=== PATIENT | female | born 1990 | race Two or more races ===

== ENCOUNTER 2024-03-14 15:50 | Outpatient (RCR) | payer MEDICAID, SELFPAY ==
--- NOTE | 2024-02-09 16:03 | XR_ITS ---
Examination: Biophysical profile, ultrasound Date and time of exam: February 09, 2024 1626 hours INDICATIONS: Pre-existing hypertension, pelvic contractions beginning one week ago Technique: Multiple transabdominal sonographic images of the pelvis abdomen obtained. Attention is directed to the breathing movement, gross body movement, amniotic fluid volume and tone. Findings: Amniotic fluid index 10.7 cm Total biophysical profile is 8 of 8. breathing movement is 2. Gross body movement is 2. tone is 2. Qualitative amniotic fluid volume is 2 Impression: Biophysical profile is 8 of 8.
[2024-02-09 16:55] VITALS: BP 117/65; PULSE 75; RESP 16; TEMP 36.7
--- NOTE | 2024-02-15 15:38 | XR_ITS ---
Examination: Biophysical profile, ultrasound Date and time of exam: February 15, 2024 1609 hrs. Indications: Lower back pain and pelvic contractions beginning several weeks ago Technique: Multiple transabdominal sonographic images of the pelvis abdomen obtained. Attention is directed to the breathing movement, gross body movement, amniotic fluid volume and tone. Findings: Amniotic fluid index 7.7 cm Total biophysical profile is 8 of 8. breathing movement is 2. Gross body movement is 2. tone is 2. Qualitative amniotic fluid volume is 2 Impression: Biophysical profile is 8 of 8.
[2024-02-15 17:04] VITALS: BP 140/78; PULSE 69; RESP 16; TEMP 36.9
--- NOTE | 2024-02-22 15:40 | XR_ITS ---
Examination: Biophysical profile, ultrasound Date and time of exam: February 22, 2024 at 1548 hrs. Indications: Pelvic contractions beginning one week ago, worse today Technique: Multiple transabdominal sonographic images of the pelvis abdomen obtained. Attention is directed to the breathing movement, gross body movement, amniotic fluid volume and tone. Findings: Amniotic fluid index 8.7 cm Total biophysical profile is 8 of 8. breathing movement is 2. Gross body movement is 2. tone is 2. Qualitative amniotic fluid volume is 2 Impression: Biophysical profile is 8 of 8.
[2024-02-22 16:30] VITALS: BP 148/84; PULSE 67; RESP 16; TEMP 36.7
--- NOTE | 2024-02-29 15:35 | XR_ITS ---
Examination: Biophysical profile, ultrasound Date and time of exam: February 29, 2024 at 1544 hours INDICATIONS: Diagnosis pre-existing hypertension, pelvic contractions intermittent one week Technique: Multiple transabdominal sonographic images of the pelvis abdomen obtained. Attention is directed to the breathing movement, gross body movement, amniotic fluid volume and tone. Findings: Amniotic fluid index 15.5 cm Total biophysical profile is 8 of 8. breathing movement is 2. Gross body movement is 2. tone is 2. Qualitative amniotic fluid volume is 2 Impression: Biophysical profile is 8 of 8.
[2024-02-29 16:00] VITALS: BP 121/77; PULSE 88; RESP 16; TEMP 36.6
--- NOTE | 2024-03-07 15:52 | XR_ITS ---
Examination: Biophysical profile, ultrasound Date and time of exam: March 07, 2024 1556 hours INDICATIONS: Diagnosis pre-existing hypertension, diagnosis pelvic contractions beginning 2 weeks ago Technique: Multiple transabdominal sonographic images of the pelvis abdomen obtained. Attention is directed to the breathing movement, gross body movement, amniotic fluid volume and tone. Findings: Amniotic fluid index 15.1 cm Total biophysical profile is 8 of 8. breathing movement is 2. Gross body movement is 2. tone is 2. Qualitative amniotic fluid volume is 2 Impression: Biophysical profile is 8 of 8.
[2024-03-07 16:33] VITALS: BP 109/59; PULSE 88; RESP 16; TEMP 36.7
--- NOTE | 2024-03-14 15:59 | XR_ITS ---
Examination: Biophysical profile, ultrasound Date and time of exam: March 14, 2024 1601 hours INDICATIONS: Diagnosis pre-existing hypertension, pelvic contractions beginning 3 weeks ago Technique: Multiple transabdominal sonographic images of the pelvis abdomen obtained. Attention is directed to the breathing movement, gross body movement, amniotic fluid volume and tone. Findings: Amniotic fluid index 10.2 cm Total biophysical profile is 8 of 8. breathing movement is 2. Gross body movement is 2. tone is 2. Qualitative amniotic fluid volume is 2 Impression: Biophysical profile is 8 of 8.
[2024-03-14 16:39] VITALS: BP 132/72; PULSE 82; RESP 16; TEMP 36.8
== END 2024-03-14 23:59 | disposition home or self-care (01) ==
LOC: S4S1 15:50
PROVIDERS: PCP Family Medicine; Referring Provider Nurse Practitioner Women's Health; Visit Provider Nurse Practitioner Women's Health
DX: O10.013 Pre-existing essential hypertension complicating pregnancy, third trimester (principal); Z3A.37 37 weeks gestation of pregnancy
CPT/HCPCS: 59025; 76819

== ENCOUNTER 2024-03-21 12:08 | Inpatient (IN) | payer MEDICAID, SELFPAY ==
[2024-03-21] VITALS (26 sets, daily range): BP systolic 116–170; BP diastolic 72–103; PULSE 59–86; RESP 18–98; TEMP 36.7–37; O2SAT 97; BMI 40.5
--- NOTE | 2024-03-21 13:02 | XR_ITS ---
Examination: Biophysical profile, ultrasound Date and time of exam: March 13, 2024 1353 hours INDICATIONS: -induced hypertension today Technique: Multiple transabdominal sonographic images of the pelvis abdomen obtained. Attention is directed to the breathing movement, gross body movement, amniotic fluid volume and tone. Findings: Amniotic fluid index 16.7 cm Total biophysical profile is 8 of 8. breathing movement is 2. Gross body movement is 2. tone is 2. Qualitative amniotic fluid volume is 2 Impression: Biophysical profile is 8 of 8.
--- NOTE | 2024-03-21 13:02 | XR_ITS ---
Examination: Complete OB ultrasound greater than 14 weeks Date and time of exam: March 13, 2024 1416 hours INDICATIONS: -induced hypertension today Findings: Viable intrauterine single fetus with single amniotic sac presentation cephalic Cardiac motion 131 BPM Placenta anterior grade 3 Umbilical cord insertion 3 vessel seen Amniotic fluid index 15.4 cm spine posterior Cervix 3.6 cm closed Ovaries obscured by bowel gas. Composite estimated gestational age based on BPD, head circumference, abdominal circumference, femur length is 38 weeks 5 days Estimated weight 3622 g. Survey of intracranial anatomy, spinal anatomy, abdominal anatomy, four-chamber heart performed with no abnormalities identified. Impression: Viable intrauterine gestation cephalic presentation.
[2024-03-21 14:27] LABS: Basophils % (Auto) 0 % (0-2.5); Eosinophils # (Auto) 0.2 Thou/mm3 (0.0-0.5); Eosinophils % (Auto) 2 % (0-10); Hematocrit 31.9 % (36.0-46.0); Hemoglobin 10.2 g/dL (12.0-16.0); Immature Granulocytes % (Auto) 1 % (0-0); Immature Granulocytes Auto 0.07 Thou/mm3 (0.00-0.00); Lymphocytes # (Auto) 1.1 Thou/mm3 (1.0-4.8); Lymphocytes % (Auto) 15 % (10-50); Mean Corpuscular Volume 75 fL (80-100); Monocytes # (Auto) 0.7 Thou/mm3 (0.0-0.8); Monocytes % (Auto) 10 % (0-12); Neutrophils # (Auto) 5.5 Thou/mm3 (1.8-7.7); Neutrophils % (Auto) 72 % (37-80); Nucleated Red Blood Cell % 0 /100 WBC (0); Platelet Count 485 Thou/mm3 (140-440); RDW Standard Deviation 45.9 fL (36.4-46.3); Red Blood Count 4.25 Miln/mm3 (4.00-5.20); White Blood Count 7.6 Thou/mm3 (3.6-11.0)
[2024-03-21 14:32] LABS: Collection Type, Urine Clean Catch
[2024-03-21 14:52] LABS: Bilirubin,Urine Negative (Negative); Blood,Urine Negative (Negative); Clarity,Urine Turbid (Clear/Hazy); Color,Urine Yellow (Lt Yel-Yel); Glucose, Urine Negative (Negative); Ketones,Urine Trace (Negative); Leukocyte Esterase,Urine Positive (Negative); Nitrite,Urine Negative (Negative); Protein,Urine 1+ (Neg - Trace); RBC,Urine 2 /hpf (0-3); Specific Gravity,Urine 1.028 (1.001-1.035); Squamous Epithelial Cell,Urine 10 /hpf (0-5); WBC,Urine 8 /hpf (0-5)
[2024-03-21 15:02] LABS: Fibrinogen 596 mg/dL (175-375); Partial Thromboplastin Time 25.6 Seconds (22.0-36.0); Prothrombin Time 10.9 Seconds (9.0-12.2)
[2024-03-21 15:03] LABS: Alanine Aminotransferase 16 U/L (10-49); Albumin/Globulin Ratio 1.3 (1.2-2.2); Alkaline Phosphatase 259 U/L (46-116); Anion Gap 8 (7-16); Aspartate Amino Transferase 15 U/L (0-34); BUN/Creatinine Ratio 11 Ratio (12-20); Bilirubin,Total 0.4 mg/dL (0.3-1.2); Blood Urea Nitrogen 8 mg/dL (9-23); Calcium 9.3 mg/dL (8.3-10.6); Calcium (Corrected) 9.3 mg/dL (8.5-10.1); Carbon Dioxide 25.3 mMol/L (20.0-31.0); Chloride 102 mMol/L (98-107); Creatinine (Component) 0.7 mg/dL (0.6-1.3); Estimated Creatinine Clearance 141.4 mL/min (>60); Globulin 3.1 gm/dL (2.3-3.5); Glucose 88 mg/dL (74-106); Osmolality,Calculated 267 (275-295); Sodium 135 mMol/L (136-145); Total Protein 7.1 gm/dL (5.7-8.2); Uric Acid 4.8 mg/dL (3.1-7.8); eGFR > 60 See Note
--- NOTE | 2024-03-21 16:10 | PD.LDHP ---
Documentation for date of: 03/21/24 OB Labor/Induct. HPI History of Present Illness Chief complaint: 34 y/o 38w 4d presents to L&D for uncontrolled BPs : 5 Para: 3 Term pregnancies: 2 pregnancies: 1 Living children: 4 (Twin delivery) History of Abortions: Spontaneous and Elective: 1 History of Vaginal deliveries: 4 History of sections: No History of : No CARO: 03/31/24 Gestational Age (weeks): 38 Gestational Age (days): 4 History of present illness: 34 y/o [id number] 38w 4d presents to L&D for uncontrolled BPs with GHTN on medication. Pt was sent in from clinic due to two elevated BPs in office. PIH labs ordered and BPP and complete OB sono. PIH labs were ok, BPP 8/8 and sono was normal, cephalic and EFW 3600g. Pt has a hx of 2 full-term deliveries 1 PTD of Twins and 1 SAB. has been complicated by pre-existing hypertension taking 200 labetalol BID. Pt is also obese with BMI 38 and has anemia. Pt was also late to care at 20 weeks. GBS is positive. EFW 3600g History of Present Dating criteria: LMP confirmed by 1st trimester US Adequate Care: Yes Ultrasounds: normal 1st trimester US and normal mid trimester US Obstetrical complications: gestational hypertension Medical complications: other (Obesity and Anemia) Labs Maternal Blood Type: O Pos Labs: Positive: Rubella Titre and Group Beta Strep, Negative: RPR, Hepatitis B, HIV, Chlamydia and Gonorrhea and Unknown: Herpes Type 1, Herpes Type 2 and Covid-19 Review of Systems Review of Systems Systems Reviewed: All systems reviewed, normal except as documented Past Medical History Surgical History SURGICAL: Negative Section Meds Home Medications and Allergies Home Medications ?Medication ?Instructions ?Recorded ?Confirmed ?Type vit no.95-ferrous 1 tab PO QDAY 03/20/23 03/21/24 History fumarate 28 mg-folic acid 800 mcg tablet () Allergies Allergy/AdvReac Type Severity Reaction Status Date / Time No Known Allergies Allergy Verified 03/21/24 15:48 OB Exam Physical Exam Vital signs: Temp Pulse Resp BP Pulse Ox 98.1 F 65 18 138/77 H 97 03/21/24 12:48 03/21/24 15:48 03/21/24 12:09 03/21/24 15:48 03/21/24 12:27 Constitutional Constitutional: no acute distress Routine HEENT Exam Head: Present normocephalic and atraumatic Eye: Present EOMI, PERRL and normal accommodation ENT: Present mucous membranes moist Routine Neck Exam Neck: Present full ROM Routine Respiratory Exam Respiratory: Absent respiratory distress Routine Cardiovascular Exam Cardiovascular: Present RRR Routine Abdominal Exam Abdominal: Present soft Comments: Gravid Uterus EFW 3600g Routine Exam External: Present normal urethra appearance; Absent lesions Detailed Labor and Delivery Exam Dilation (cm): FT Effacement (%): 0 Cervix position: posterior station: -3 Consistency: medium Presentation: Vertex Membranes: intact Baseline heart rate: 125 monitor accelerations: 15x15 monitor decelerations: None value advisor variability: Moderate (11-25) Contraction frequency (min): None Routine Extremities Exam Extremities: Present full ROM Routine Back/Spine/Pelvis Exam Back/Spine: Present full ROM Routine Skin Exam Skin: Present intact, dry and warm Routine Neurological Exam Neurological: Present alert, oriented X3 and CN II-XII intact Routine Psychiatric Exam Psychiatric: Present normal affect and normal thought process OB Results Labs 03/21/24 14:01 03/21/24 14:01 Labs: Short CBC 03/21/24 Range/Units 14:01 WBC 7.6 (3.6-11.0) Thou/mm3 Hgb 10.2 L (12.0-16.0) g/dL Hct 31.9 L (36.0-46.0) % Plt Count 485 H (140-440) Thou/mm3 BMP 03/21/24 14:01 Sodium 135 L Potassium 4.0 Chloride 102 Carbon Dioxide 25.3 BUN 8 L Creatinine 0.7 Glucose 88 Calcium 9.3 Liver Function 03/21/24 Range/Units 14:01 Total Bilirubin 0.4 (0.3-1.2) mg/dL AST 15 (0-34) U/L ALT 16 (10-49) U/L Alkaline Phosphatase 259 H (46-116) U/L Albumin 4.0 (3.5-5.0) gm/dL Urine 03/21/24 Range/Units 13:00 Urine Color Yellow (Lt Yel-Yel) Urine Clarity Turbid A (Clear/Hazy) Urine pH 6.0 (5.0-7.0) Ur Specific [place] 1.028 (1.001-1.035) Urine Protein 1+ A (Neg - Trace) Urine Glucose (UA) Negative (Negative) OB Assessment & Plan Assessment and Plan (1) Encounter for induction of labor: Status: Acute (2) Gestational hypertension: Status: Acute (3) Anemia affecting : Status: Acute (4) Obesity affecting in third trimester: Status: Acute (5) with 38 completed weeks gestation: Status: Acute Additional Plan Induction method: per misoprostol protocol Plan: induction, GBS prophylaxis tx and consult prn Additional Plan Comment: Admitted for uncontrolled BPs on medication Consult anesthesia for an epidural Continue labetalol [address] Abbott to manage BPs Seizure precautions (2) Gestational hypertension Qualifiers: Trimester: third trimester Qualified Code(s): O13.3 - Gestational [-induced] hypertension without significant proteinuria, third trimester (3) Anemia affecting Qualifiers: Trimester: third trimester Qualified Code(s): O99.013 - Anemia complicating , third trimester (4) Obesity affecting in third trimester Qualifiers: Obesity type affecting : other obesity due to excess calories Qualified Code(s): O99.213 - Obesity complicating , third trimester; E66.09 - Other obesity due to excess calories
[2024-03-21] MEDS: LABETALOL 100 MG TABLET 400 MG PO (16:37)
[2024-03-21] MEDS: MISOPROSTOL 50 mCg TABLET PO ×2 (17:59→22:00)
[2024-03-21 18:49] LABS: Syphilis Nonreactive (Nonreactive)
[2024-03-21 19:26] LABS: Amphetamine/Metham Scrn,Ur OB Negative (Negative); Benzoylecgonine Screen, Ur OB Negative (Negative); Opiate Screen,Urine OB Negative (Negative); THC Screen,Urine OB Negative (Negative)
[2024-03-22] VITALS (61 sets, daily range): BP systolic 110–179; BP diastolic 59–94; PULSE 60–75; RESP 16–18; TEMP 36.6–37.1
[2024-03-22] MEDS: MISOPROSTOL 50 mCg TABLET PO (02:30)
[2024-03-22] MEDS: LABETALOL 100 MG TABLET 400 MG PO (05:39)
--- NOTE | 2024-03-22 07:27 | PD.LDPN ---
Documentation for date of: 03/22/24 OB Labor Progress Note Pain Control Pain control: tolerating well Comments: Pt is a 34-year-old -0-0-4 with a history of vaginal delivery x 4 last one for twins. Patient is at 38-5/7 weeks being induced for chronic hypertension with elevated blood pressures. She is already had oral Cytotec 50 mcg x 3. Patient declines epidural and did not even have one on her delivery of her vaginal twins. She is tolerating her contractions well with minimal pain Pelvic Exam Dilation (cm): 3 Effacement (%): 80 station: -2 Amniotic membrane status: Ruptured Comments: AROMED 0720, clear fluid. IUPC and FSE placed. FSE placed as baby hard to monitor on [place] Contractions Monitor mode: External Contraction frequency: every 3 minutes Contraction intensity: Mild Status status: Category l Assessment and Plan Assessment: induction ongoing Comments: Monitor contractions for now consider Pitocin augmentation if contractions space CNM Management Details of MD consultation: Patent patient was admitted and managed by the cabinet abrasive sandblaster overnight. I will be managing the patient today. She was signed out to me at 7:00 this morning
[2024-03-22] MEDS: RINGERS LACTATED 1000 ML 1,000 ML 100 ML IV ×2 (09:19→15:11)
[2024-03-22] MEDS: Ampicillin Inj 2,000 MG in SODIUM CHLORIDE 0.9% (P) 100 ML 200 MG IV (10:09)
[2024-03-22] MEDS: OXYTOCIN in NS 30 units 30 UNIT/500 ML BAG IV (10:46)
--- NOTE | 2024-03-22 11:06 | PD.LDPN ---
Documentation for date of: 03/22/24 OB Labor Progress Note Pain Control Pain control: tolerating well Comments: The patient is tolerating contractions well she does not desire IV pain medication or an epidural. Her contractions are spacing with an IUPC in place and Pitocin augmentation was ordered at 2 milliunits/min. Patient remains 4 cm dilated when I examined her 3 hours ago she was 3 cm dilated. Pelvic Exam Dilation (cm): 4 Effacement (%): 90 station: -2 Amniotic membrane status: Ruptured Contractions Monitor mode: Internal Contraction frequency: every 3-5 minutes Contraction intensity: Mild Status status: Category l Assessment and Plan Plan OB labor note: begin Pitocin augmentation
[2024-03-22] MEDS: Ampicillin Inj 1,000 MG in SODIUM CHLORIDE 0.9% (P) 50 ML 50 MG IV (14:03)
[2024-03-22] MEDS: fentaNYL CIT INJ 50 mCg/ML AMP 2ML 100 MCG IV (15:24)
--- NOTE | 2024-03-22 15:24 | PD.LDPN ---
Documentation for date of: 03/22/24 OB Labor Progress Note Pelvic Exam Dilation (cm): 4-5 Effacement (%): 90 station: -2 Amniotic membrane status: Ruptured Contractions Monitor mode: Internal Contraction frequency: every 3-5 minutes Contraction intensity: Mild Status status: Category l Assessment and Plan Pitocin rate (mU/min): 8 Assessment: active labor Plan OB labor note: continuous present management Comments: Pt requesting fentanyl for pain
[2024-03-22] MEDS: OXYTOCIN in NS 20 units 20 UNIT/1,000 ML BAG 125 UNIT IV (16:41)
[2024-03-22] MEDS: IBUPROFEN TAB 400 MG TABLET 800 MG PO (16:48)
[2024-03-22] MEDS: BENZO/LANO/ALOE (Dermoplast) 60 GM CAN 1 SPRAY TOP (16:58)
--- NOTE | 2024-03-22 17:26 | PD.LDDELS ---
Data (David) Data Hx Section: No Maternal Blood Type: O Pos Rubella Titre: Positive RPR: Non-reactive Labs: Positive: Group Beta Strep, Negative: RPR, Hepatitis B, HIV, Chlamydia and Gonorrhea and Unknown: Herpes Type 1 and Herpes Type 2 : 5 Para: 3 Term: 4 : 1 Delivery Data (David) Labor Data Stimulated/Augmented: Yes Induction: Yes Method: Oxytocin ROM Date: 03/22/24 ROM Time: 07:22 Rupture Type: AROM Amniotic Fluid: Clear Delivery Data EDC: 02/29/24 EDC calculated by:: LMP/early US confirmation Labor Onset Stage 1 Date: 03/22/24 Labor Onset Stage 1 Time: 07:22 Labor Onset Stage 2 Date: 03/22/24 Labor Onset Stage 2 Time: 16:27 Delivery Date: 03/22/24 Delivery Time: 16:35 Placenta Delivery Date: 03/22/24 Placenta Delivery Time: 16:41 Delivered by: Renetta Coyle Delivery nurse: Rachell Goodman Enterprise Systems Engineer at delivery: No Support person(s) at delivery: FOB Other staff at delivery: 2nd Nurse Other staff at delivery: 2nd Nurse Other staff at delivery: Nursery Nurse Other staff at delivery: Ximena Kulkarni Other staff at delivery: Janet Herbert Delivery Method Delivery: Vaginal Delivery Type: Spontaneous Presentation: Vertex Position: OA Anesthesia Type Primary Anesthesia: None Secondary Anesthesia: None Delivery Room Medications Intrapartum Medications: Antibiotics Placenta Placenta Delivery: Spontaneous Placenta Cultures Obtained: No Placenta Sent for Examination: No Episiotomy Episiotomy: None EBL Estimated blood loss (ml): 200 Umbilical Cord Umbilical Vessels: 3 Nuchal Cord: None Body Cord: None Additional Procedures Patient progressed rapidly from 5 cm to complete and pushed through 3-4 contractions delivering a liveborn female at 1635. Patient delivered over an intact perineum. She did not have any lidocaine or pain medications given except for 1 dose of fentanyl approximately an hour before delivery. Placenta was complete spontaneous grossly normal approximately 2 to 3 minutes after baby delivered. Three-vessel cord was noted. Complications Complications: None. Both mom and infant in stable condition in the delivery room Data (David) [place] Data order: 5 Gender: Female Infant Weight Grams: 3960 1 Minute Total: 8 5 Minute Total: 9
[2024-03-22 23:08] LABS: Basophils % (Auto) 0 % (0-2.5); Eosinophils # (Auto) 0.1 Thou/mm3 (0.0-0.5); Eosinophils % (Auto) 0 % (0-10); Hematocrit 29.7 % (36.0-46.0); Hemoglobin 9.5 g/dL (12.0-16.0); Immature Granulocytes % (Auto) 1 % (0-0); Immature Granulocytes Auto 0.09 Thou/mm3 (0.00-0.00); Lymphocytes # (Auto) 1.5 Thou/mm3 (1.0-4.8); Lymphocytes % (Auto) 11 % (10-50); Mean Corpuscular Hemoglobin 24.2 pg (25.0-35.0); Mean Corpuscular Volume 76 fL (80-100); Monocytes # (Auto) 1.2 Thou/mm3 (0.0-0.8); Monocytes % (Auto) 8 % (0-12); Neutrophils % (Auto) 80 % (37-80); Nucleated Red Blood Cell % 0 /100 WBC (0); Platelet Count 462 Thou/mm3 (140-440); Red Blood Count 3.92 Miln/mm3 (4.00-5.20); White Blood Count 13.8 Thou/mm3 (3.6-11.0)
[2024-03-23 03:30] VITALS: BP 110/69; PULSE 63; RESP 16; TEMP 37; O2SAT 97
[2024-03-23 08:00] VITALS: BP 143/88; PULSE 73; RESP 18; TEMP 36.7; O2SAT 97
--- NOTE | 2024-03-23 09:39 | PD.LDDS ---
DS: Providers Provider Date of admission: 03/21/24 15:42 Primary care physician: Physician No Primary/Family Admitting Provider: Lashae Mercedes CNM Attending Provider on Admission: Renetta Coyle MD Consults: 03/22/24 17:23 Referral Routine Comment: Attending Provider on DC: Blaire Perez MD Discharging Provider: Blaire Perez MD DS: Diagnosis Discharge Diagnosis (1) Encounter for induction of labor: Status: Acute (2) Obesity affecting in third trimester: Status: Acute (3) Anemia affecting : Status: Acute (4) Gestational hypertension: Status: Acute (5) with 38 completed weeks gestation: Status: Acute Problem List Completed Was Problem List Reviewed/Reconciled?: Yes Summary/Hosp Course Brief History: 34 y/o [id number] 38w 4d presents to L&D for uncontrolled BPs with GHTN on medication. Pt was sent in from clinic due to two elevated BPs in office. PIH labs ordered and BPP and complete OB sono. PIH labs were ok, BPP 8/8 and sono was normal, cephalic and EFW 3600g. Pt has a hx of 2 full-term deliveries 1 PTD of Twins and 1 SAB. has been complicated by pre-existing hypertension taking 400 labetalol BID. Pt is also obese with BMI 38 and has anemia. Pt was also late to care at 20 weeks. GBS is positive. EFW 3600g She is doing well s/p uncomplicated at 38+wk after undergoing IOL, delivering at on 03/22. She has had an uncomplicated course, meeting all milestones and feels ready for discharge home. She is ambulating without lightheadedness, tolerating regular diet no n/v, spontaneously voiding without issue. She has no chest pain or shortness of breath. No fevers or chills. Minimal, appropriate discomfort. Vitals normal, benign exam. Hemodymanically stable with no evidence of infection. PP Hgb 9.5, initiating oral iron. Time Spent with Patient Time attestation: Total time spent providing and/or coordinating discharge services: Exam Vital Signs Temp Pulse Resp BP Pulse Ox O2 Del Method 98.1 F 73 18 143/88 H 97 Room Air 03/23/24 08:00 03/23/24 08:00 03/23/24 08:00 03/23/24 08:00 03/23/24 08:00 03/23/24 08:00 Narrative Exam General: well developed, well nourished, no acute distress, conversant Cardiac: normal heart rate Lungs: breathing without distress Abdomen: soft, post-gravid, non-tender, no rebound or guarding. Fundus firm at u-2cm. Extremities: no pain with palpation of calves, trace edema of BLE Discharge Plan Plan Patient Disposition: HOME (Self Care) Patient condition on transfer: Stable Prescriptions/Referrals Prescriptions/Med Rec: New ibuprofen 800 mg tablet 800 mg PO Q8H PRN (Reason: See Comments) 10 Days Qty: 20 0RF labetalol 200 mg tablet 400 mg PO BID 30 Days Qty: 120 0RF ferrous sulfate 325 mg (65 mg iron) tablet 325 mg PO QDAY Qty: 30 0RF Continued PNV cmb#95-ferrous fumarate-FA [] 28 mg iron- 800 mcg tablet 1 tab PO QDAY Patient Comments: TAKE 1 TABLET BY MOUTH EVERY DAY FOR 30 DAYS Referrals: No Primary/Family,Physician [Primary Care Provider] - Patient/Caregiver Discharge Instructions Discharge Activity: activity as tolerated Other Discharge Activity Instructions:: Vaginal rest, no baths (only shower) and no heavy lifting greater than 10 pounds for 6 weeks. Other Discharge Diet Instructions: Regular Education Materials: After a Vaginal Print Language: Ukrainian Activity Restrictions/Additional Instructions: Follow up for visit with OBGYN or CNM in 4 to 6 weeks, call for appointment Stand Alone Forms: Nancy Award Info., Patient Portal Info Letter Discharge Order Discharge Orders: Discharge (Routine); Ordered 03/23/24 Ordered By: Blaire Perez Planned Discharge Date 03/23/24 (2) Obesity affecting in third trimester Qualifiers: Obesity type affecting : other obesity due to excess calories Qualified Code(s): O99.213 - Obesity complicating , third trimester; E66.09 - Other obesity due to excess calories (3) Anemia affecting Qualifiers: Trimester: third trimester Qualified Code(s): O99.013 - Anemia complicating , third trimester (4) Gestational hypertension Qualifiers: Trimester: third trimester Qualified Code(s): O13.3 - Gestational [-induced] hypertension without significant proteinuria, third trimester
[2024-03-23] MEDS: PRENATAL VITAMIN/FE FUM/FA TABLET 1 TAB PO (09:54)
[2024-03-23 09:55] VITALS: BP 143/88; PULSE 73
[2024-03-23] MEDS: LABETALOL 100 MG TABLET 400 MG PO (09:55)
[2024-03-23 11:02] VITALS: BP 137/83; PULSE 74; RESP 18; TEMP 36.7; O2SAT 97
--- NOTE | 2024-03-23 11:16 | PC.SS ---
INFORMATICS NURSE SPECIALIST conducted bedside contact with the patient to address nursing referral indicating patient was late to care.? INFORMATICS NURSE SPECIALIST introduced self and role.? Present with the patient was DEBRA, Ron Geren .? Patient gave permission for INFORMATICS NURSE SPECIALIST to discuss referral in presence of FOB.? Patient confirmed late to care.? Patient stated that initially she did not know she was .? Patient attempted to schedule appointment with [facility] but appointment had been re-scheduled twice.? Patient then transferred services to [facility] with Lashae Mercedes.? is the patient?s 5th child.? Patient has a 14 year old, 12 year old and 11 month old twins.? Patient is receiving WIC.? Patient is not receiving SNAP nor TANF.? Patient denies history of alcohol/drug abuse.? Patient denies CWS intervention.? Patient denies episodes of domestic violence.? Patient plans on breast feeding the .? Patient has access to appropriate supplies and equipment; to include a car seat.? FOB will provide transportation upon discharge.? Patient describes possessing support system consisting of FOB and extended family.? INFORMATICS NURSE SPECIALIST provided the patient with community resources to include [employer] Network and Warm Line.? No further intervention required at this time, social psychologist will be available to address any further concerns.? INFORMATICS NURSE SPECIALIST updated bedside nurse.?
== END 2024-03-23 18:03 | disposition home or self-care (01) | DRG 560 ==
LOC: S4SX 03-22 17:01 → S4NX 03-22 19:35
PROVIDERS: Admitting Provider Nurse Practitioner Women's Health; Visit Provider Obstetrics & Gynecology
DX: O13.4 Gestational [pregnancy-induced] hypertension without significant proteinuria, complicating childbirth (principal); Z37.0 Single live birth; Z3A.38 38 weeks gestation of pregnancy; E66.09 Other obesity due to excess calories; O99.214 Obesity complicating childbirth
CPT/HCPCS: 36415; 59025; 59409; 76805; 76819; 80053; 80307; 81001; 84550; 85025; 85384; 85610; 85730; 86780; 86850; 86900; 86901; 94762; J0290; J2590; J3010; J7050; J7120; A9270